=== PATIENT | male | born 1950 | race Caucasian/White ===

== ENCOUNTER → 2020-05-22 | Outpatient (CLI) | payer MEDICARE ==
--- NOTE | 2020-05-23 16:03 | MRI ---
EXAM DESCRIPTION: Lumbar Spine w/o Contrast : Magnetic Resonance Imaging. CLINICAL HISTORY: LOW BACK PN COMPARISON: Lumbar radiographs May 05, 2020. TECHNIQUE: Multiplanar, multiple standard sequences, non contrast MRI, lumbar spine. FINDINGS: L5-S1: The disc is well visualized on axial T2 series 501, image 3. Normal signal in the disc with disc space preserved. No bulging. Hypertrophic changes in the posterior flavum ligaments and bilateral facets (canal elements. AP canal diameter 9 mm. Bilateral facet and disc encroachment on the foramina borderline stenosis. L4-L5: Disc desiccation with disc space maintained. Posterior broad-based bulge with hyperintense T2 annular fissure. Moderate hypertrophic changes in the canal elements. AP canal diameter just below the disc space is 6 mm. Compression of the thecal sac. Bilateral subarticular recess stenosis. Moderate bilateral foraminal narrowing more on the right. L3-L4: Disc desiccation with minimal posterior bulge. Left posterior endplate Modic type II changes. Moderate hypertrophic changes in the canal elements. AP canal diameter 5 mm. Compression of the thecal sac. Facets are abutting the bilateral L3 nerve roots in the foramina with mild to moderate narrowing. Hypointense, 5 mm fragment T1 and T2 sequences, abutting the descending right L3 nerve root above the right L3-L4 foramen on T2 axial sequence image 15 and T1 axial sequence image 25. Possibly a disc fragment. L2-L3: Disc desiccation and minimal disc space loss. Anterior bulging and endplate ridging. Posterior broad-based disc bulge. Hypertrophic changes in the canal elements. AP canal diameter 6.5 mm. Mild bilateral foraminal narrowing. L1-L2: Disc desiccation and anterior disc space loss with bulging disc and anterior ridging. Minimal posterior bulge. Hypertrophic changes in the canal elements. AP canal diameter 10 mm. Mild bilateral foraminal narrowing. T12-L1: Normal signal in the disc with disc space preserved. Perineural cyst in the right foramen abutting the right T12 nerve. Left foramen is patent. Canal elements are unremarkable. Canal is patent. Conus terminates just above the disc space. No scoliosis. Paravertebral soft tissues fatty atrophy. Distal cord normal signal and caliber. Otherwise normal marrow signal in the remaining vertebral bodies and the posterior elements. Vertebral bodies are not compressed at any level. IMPRESSION: 1. Multiple levels of disc desiccation, multilevel significant hypertrophic degenerative hypertrophy of the facet joints and flavum ligaments, and endplate changes 2. 5 mm fragment possibly from a disc, abutting the descending right L3 nerve root above the right L3-L4 foramen, in the right anterior aspect of the spinal canal. 3. Borderline foraminal stenosis secondary to bulging disc and spurs and multifactorial mild central canal stenosis at L5-S1. 4. L4-L5 desiccated disc with posterior hyperintense T2 annular fissure. Multifactorial severe central canal stenosis. Bilateral subarticular recess stenosis. 5. Multifactorial severe central canal stenosis at L3-L4. Multifactorial moderate to severe central canal stenosis at L2-L3. 6. Please refer to FINDINGS for discussion of results at other disc space levels. Electronically signed by: Heladio Young MD 05/23/2020 4:01 PM [facility]
== END ==
LOC: MRI 10:23
PROVIDERS: ATTEND Obstetrics & Gynecology
DX: M51.36 Other intervertebral disc degeneration, lumbar region (principal); M51.86 Other intervertebral disc disorders, lumbar region; M48.061 Spinal stenosis, lumbar region without neurogenic claudication; M47.896 Other spondylosis, lumbar region; M24.08 Loose body, other site